=== PATIENT | female | born 1975 | race Caucasian/White ===

== ENCOUNTER 2025-04-20 06:16 | Emergency (ER) | payer OTHER, SELFPAY ==
[2025-04-20] VITALS (10 sets, daily range): BP systolic 126–143; BP diastolic 71–87; PULSE 60–79; RESP 16–18; TEMP 36.7–37.1; O2SAT 95–97; BMI 36.9
--- NOTE | 2025-04-20 07:13 | ED.ABDPAIN ---
HPI - Abdominal Pain General Chief Complaint: Abdominal Pain Stated Complaint: Lower abdominal pain x 1 day Time Seen by Provider: 04/20/25 06:53 Source: family, RN notes reviewed and old records reviewed Mode of arrival: Ambulatory Limitations: no limitations History of Present Illness HPI narrative: 50-year-old female hypertension with complaint of left lower quadrant pain that is starting yesterday fairly abruptly. Patient states it is sort of waves of pain. She states no fevers. No nausea or vomiting. She denies any diarrhea constipation or black or bloody stools. She denies any dysuria urgency or frequency or hematuria. No vaginal bleeding or discharge. Denies any flank pain. States it has not changed position. No rash or skin changes. States he has had a prior cholecystectomy but no other prior surgeries. She states she does have a history of pancreatitis once before feels somewhat similar but not as intense. Denies any drug allergies. No tobacco, occasional alcohol, no recreational drugs. Related Data Previous Rx's ?Medication ?Instructions ?Recorded amoxicillin 875 mg-potassium 1 tab PO BID #20 tabs 04/20/25 clavulanate 125 mg tablet tramadol 50 mg tablet 50 mg PO Q6H PRN pain #10 tabs 04/20/25 Allergies Allergy/AdvReac Type Severity Reaction Status Date / Time No Known Drug Allergies Allergy Verified 04/20/25 06:30 Review of Systems Review of Systems ROS Unobtainable: All systems reviewed & are unremarkable except as noted in HPI and below Patient History Social History Smoking Status: Smoker, status unknown Smoking Status: Smoker, status unknown Exam Narrative Exam Narrative: GENERAL: Alert and oriented x three, female in mild distress HEENT: Head normocephalic, atraumatic, EOMI, pupils reactive, face symmetric, moist mucous membranes NECK: Supple, full range of motion CARDIOVASCULAR: Regular rate and rhythm without murmurs, rubs or gallops. RESPIRATORY: Breath sounds equal bilaterally, no wheezes rales or rhonchi. ABDOMEN: Soft, positive for left lower quadrant tenderness. Normoactive bowel sounds all 4 quadrants. No guarding or rebound, rigidity, no mass, no rash or skin changes. : No CVA tenderness EXTREMITIES: Normal range of motion, no clubbing or edema. Neurovascularly intact NEUROLOGICAL: Cranial nerves II through XII grossly intact. Moving all extremities SKIN: Warm, dry, no petechiae, no rashes or lesions. Initial Vital Signs Initial Vital Signs: Vital Signs Pulse Rate 79 04/20/25 06:23 Blood Pressure 143/87 H 04/20/25 06:23 Pulse Oximetry 97 04/20/25 06:23 Course Orders Ordered: ED Orders 04/20/25 06:54 Urinalysis and Microscopic Stat 04/20/25 07:00 Complete Blood Count AUTO DIFF Stat Comprehensive Metabolic Panel Stat Lipase Stat 04/20/25 07:20 CT abdomen pelvis w con Stat Discontinued Medications Ketorolac Tromethamine (Ketorolac 30 Mg/Ml Vial) 15 mg IV NOW ONE Stop: 04/20/25 07:21 Last Admin: 04/20/25 07:24 Dose: 15 mg Documented By: STERLING Vital Signs Vital signs: Vital Signs - 8 hr 04/20/25 07:30 04/20/25 07:30 04/20/25 08:02 Temperature Pulse Rate 70 67 Respiratory Rate Blood Pressure 134/82 Pulse Oximetry 95 96 Oxygen Delivery Method 04/20/25 08:03 04/20/25 08:03 04/20/25 08:30 Temperature Pulse Rate 68 Respiratory Rate Blood Pressure 133/73 129/71 Pulse Oximetry 96 Oxygen Delivery Method 04/20/25 08:30 04/20/25 09:00 04/20/25 09:00 Temperature Pulse Rate 62 60 Respiratory Rate Blood Pressure 134/80 Pulse Oximetry 96 95 Oxygen Delivery Method 04/20/25 09:24 Temperature 98.7 F Pulse Rate 71 Respiratory Rate 16 Blood Pressure 126/74 Pulse Oximetry 97 Oxygen Delivery Method Room Air MDM - Abdominal Pain Lab Data 04/20/25 07:00 04/20/25 07:00 Labs: Lab Results 04/20/25 04/20/25 Range/Units 06:45 07:00 WBC 12.0 H (4.5-11.0) X10^3/uL RBC 4.84 (4.0-5.2) X10^6/uL Hgb 13.8 (12.0-16.0) g/dL Hct 40.5 (36-46) % MCV 83.7 (80-100) fL MCH 28.5 (26-34) PG MCHC 34.1 (30-36) % RDW 14.0 (11.6-14.8) % Plt Count 298 (150-400) X10^3/uL Neut % (Auto) 76.5 H (50-75) % Lymph % (Auto) 15.7 L (25-40) % [place] % (Auto) 6.0 (3-14) % Eos % (Auto) 1.4 L (2-4) % Baso % (Auto) 0.4 (0-2) % Neut # (Auto) 9200 H (9228-0743) /uL Lymph # (Auto) 1900 (0593-0798) /uL [place] # (Auto) 700 (0-900) /uL Eos # (Auto) 200 (0-450) /uL Baso # (Auto) 0 (0-100) /uL Sodium 135 L (137-145) mmol/L Potassium 3.9 (3.4-5.1) mmol/L Chloride 104 (98-107) mmol/L Carbon Dioxide 22 (22-32) mmol/L BUN 17 (7-17) mg/dL Creatinine 0.98 (0.52-1.04) mg/dL Estimated GFR > 60 (>60) mL/min BUN/Creatinine Ratio 17.3 (6-22) Glucose 111 H (70-99) mg/dL Calcium 8.8 (8.4-10.2) mg/dL Total Bilirubin 0.8 (0.2-1.3) mg/dL AST 28 (14-36) IU/L ALT 17 (<35) IU/L Alkaline Phosphatase 83 (38-126) U/L Total Protein 7.8 (6.3-8.2) g/dL Albumin 4.3 (3.5-5.0) g/dL Globulin 3.5 (1.7-4.1) g/dL Albumin/Globulin Ratio 1.2 (1.0-2.8) Lipase 44 (23-300) U/L Urine Color Yellow Urine Appearance Sl cloudy Urine pH 5.5 (4.5-8.0) Ur Specific [place] >=1.030 H (1.000-1.035) Urine Protein Trace H (Negative) Urine Glucose (UA) Negative (Negative) g/dL Urine Ketones Negative (NEGATIVE) Urine Occult Blood Trace-intact (Negative) Urine Nitrate Negative (Negative) Urine Bilirubin Negative (NEGATIVE) Urine Urobilinogen 1.0 (0.2) E.U./dL Ur Leukocyte Esterase Negative (NEGATIVE) Urine RBC None seen (0-5/HPF) Urine WBC 0-1/hpf (0-5/HPF) Ur Squamous Epith Cells >30 /hpf H (0-5/HPF) Urine Bacteria Moderate (10-30) H (None) Ur Culture Indicated? Cult not indicated Vol Urine Centrifuged 10ml (spun) MDM Narrative Medical decision making narrative: Labs labs show white count of 12 hemoglobin of 13.8 platelets 298, sodium is 135 electrolytes BUN creatinine are otherwise appropriate glucose is 111 LFTs are normal lipase is normal. Urine shows specific gravity greater than 1.030, trace protein, trace blood, no red cells 1 white cell [address] abdomen pelvis shows acute diverticulitis. Patient received Toradol Patient notes her pain feels much improved. Reviewed her findings, she has not ever had a colonoscopy we discussed she should follow up once her symptoms have improved for screening as well to follow up with her diverticulitis. Lab restart oral antibiotics with return precautions. All questions answered. Discharge Plan Departure Patient Disposition: Home Clinical Impression: Diverticulitis Instructions: DI for Diverticulitis Activity Restrictions/Additional Instructions: Your workup today does show diverticulitis, if you have not had a fairly recent colonoscopy after your acute symptoms have improved I recommend follow up for screening colonoscopy Take oral antibiotics until completed. You can take acetaminophen up to a 1000 mg every 6 hours and/or ibuprofen up to 600 mg every 6 hours needed for pain. If inadequate you can take narcotic pain medication as prescribed 1-2 tablets every 6 hours as needed. You can take this medication with the acetaminophen and ibuprofen. This medication can make you sleepy do not drive, perform hazardous activities or make any major decisions while taking it. This medication will make you constipated please take a stool softener once to twice daily until stools are soft and regular. Prescription sent to [facility] in [place]. Please return for fevers, worsening abdominal back or flank pain, any vomiting, new black or bloody stools, lightheadedness or passing out or other new or concerning changes. Prescriptions: New amoxicillin-pot clavulanate 875-125 mg tablet 1 tab PO BID Qty: 20 0RF tramadol 50 mg tablet 50 mg PO Q6H PRN (Reason: pain) Qty: 10 0RF Referrals: Bennett Burgos ARNP [Primary Care Provider, Family Practice] Stand Alone Forms: Patient Portal/API
--- NOTE | 2025-04-20 07:20 | DI.CT.S_ITS ---
PROCEDURE: CT ABDOMEN PELVIS W CON INDICATIONS: LLQ pain TECHNIQUE: After the administration of intravenous contrast, axial sections acquired from the lung bases to the pubic symphysis. Coronal and sagittal reformats were performed. For radiation dose reduction, the following was used: automated exposure control, adjustment of mA and/or kV according to patient size. COMPARISON: None. FINDINGS: Image quality: Diagnostic. Lower Chest: No significant findings. ABDOMEN: Liver: No solid mass. Gallbladder: Absent due Biliary ducts: No biliary dilation. Pancreas: No ductal dilation. Spleen: Size is within normal limits. Adrenal Glands: No adrenal nodules. Kidneys and Ureters: No hydronephrosis. No solid mass. No complex renal cystic lesion which requires follow up. Stomach and Bowel: Acute diverticulitis at the junction between the descending colon and sigmoid. No free air, free fluid, or abscess cavity. Moderately severe underlying diverticulosis. Peritoneum: No abnormal intraperitoneal fluid. No free air. Ventral Wall: No significant ventral hernia. Abdominal Nodes: No retroperitoneal or mesenteric adenopathy by size criteria. Vessels: Aorta and inferior vena cava are normal in size. PELVIS: Pelvic Organs: Unremarkable. Bladder: No bladder wall thickening, accounting for underdistention. Pelvic Nodes: No enlarged lymph nodes. Miscellaneous: No inguinal hernias are seen. Bones: No aggressive osseous abnormality. IMPRESSION: 1. Acute diverticulitis. Comment: If the patient has not had recent colonoscopy, recommend direct visualization after acute symptoms resolve to exclude underlying lesion. Dictated by: Basil Guzmán M.D. on 04/20/2025 at 8:10 Approved by: Basil Guzmán M.D. on 04/20/2025 at 8:18
[2025-04-20] MEDS: KETOROLAC 30 MG/ML VIAL 15 MG IV (07:24)
[2025-04-20 07:30] LABS: Add Manual Diff / Slide Review NO; Hematocrit 40.5 % (36-46); Hemoglobin 13.8 g/dL (12.0-16.0); Lymphocytes Absolute Auto 1900 /uL (1100-4500); Mean Corpuscular HGB Conc 34.1 % (30-36); Mean Corpuscular Hemoglobin 28.5 PG (26-34); Mean Corpuscular Volume 83.7 fL (80-100); Platelet Count 298 X10^3/uL (150-400)
[2025-04-20 07:35] LABS: Alanine Aminotransferase 17 IU/L (<35); Albumin 4.3 g/dL (3.5-5.0); Albumin Globulin Ratio 1.2 (1.0-2.8); Alkaline Phosphatase 83 U/L (38-126); Blood Urea Nitrogen 17 mg/dL (7-17); Calcium 8.8 mg/dL (8.4-10.2); Carbon Dioxide 22 mmol/L (22-32); Chloride 104 mmol/L (98-107); Estimated Glomerular Filt Rate > 60 mL/min (>60); Globulin 3.5 g/dL (1.7-4.1); Glucose 111 mg/dL (70-99); HEMOLYSIS 15 (0-50); Lipase 44 U/L (23-300); Potassium 3.9 mmol/L (3.4-5.1); Sodium 135 mmol/L (137-145); Total Protein 7.8 g/dL (6.3-8.2)
[2025-04-20 07:37] LABS: Appearance Urine UA SL CLOUDY; Bilirubin Urine UA NEGATIVE (NEGATIVE); Color Urine UA YELLOW; Glucose Urine UA NEGATIVE (Negative); Ketones Urine UA NEGATIVE (NEGATIVE); Leukocyte Esterase Urine UA NEGATIVE (NEGATIVE); Nitrite Urine UA NEGATIVE (Negative); Occult Blood Urine UA TRACE-INTACT (Negative); Protein Urine UA TRACE (Negative); Specific Gravity Urine UA >=1.030 (1.000-1.035); Urobilinogen Urine UA 1.0 E.U./dL (0.2)
[2025-04-20 07:49] LABS: pH Urine UA 5.5 (4.5-8.0)
[2025-04-20 08:46] LABS: Culture Indicated Urine Cult Not Indicated
== END 2025-04-20 09:26 | disposition home or self-care (01) ==
PROVIDERS: Emergency Medicine; Emergency Provider Emergency Medicine
DX: K57.92 Diverticulitis of intestine, part unspecified, without perforation or abscess without bleeding (principal)
CPT/HCPCS: 74177; 80053; 81001; 83690; 85025; 96374; 99284; J1885; Q9967